=== PATIENT | female | born 1945 | race Caucasian/White ===

== ENCOUNTER → 2019-01-20 | Outpatient (CLI) | payer MEDICARE, OTHER ==
--- NOTE | 2019-01-20 20:51 | XCELERA REPORT ---
[address] [address] Transthoracic Echocardiogram Report Name: RENEE KENNEDY Age: 73 yrs Gender: Female : 1945 Patient Status: Outpatient Patient Location: [facility] Study Date: 01/20/2019 01:51 PM Height: 65 in Weight: 189 lb BSA: 1.9 m2 Procedure: A complete two-dimensional transthoracic echocardiogram was performed (2D, M-mode, spectral and color flow Doppler). The study was technically adequate with some images being suboptimal in quality. Reason For Study: CHF Ordering Physician: MARIAH GILBERT Performed By: Jazz Avalos Interpretation Summary The left ventricular ejection fraction is normal. Doppler measurements suggest pseudonormalized left ventricular relaxation, which is associated with grade II/IV or mild to moderate diastolic dysfunction There is mild concentric left ventricular hypertrophy. The left ventricle is grossly normal size. The right ventricular systolic function is normal. The left atrium is mildly dilated. The right atrium is normal in size There is a trace to mild amount of mitral regurgitation There is no mitral valve stenosis. No aortic regurgitation is present. There is no aortic valve stenosis There is a trace to mild amount of tricuspid regurgitation Right ventricular systolic pressure is at the upper limits of normal The inferior vena cava appeared normal and decreased > 50% with respiration (RAP 5-10 mmHg) The aortic root is not well visualized but is probably normal size. There is no pericardial effusion. MMode/2D Measurements & Calculations RVDd: 2.9 cm LVIDd: 4.3 cm FS: 43.1 % Ao root diam: 2.6 cm IVSd: 1.1 cm LVIDs: 2.5 cm EDV(Teich): 83.4 ml Ao root area: 5.5 cm2 LVPWd: 1.1 cm ESV(Teich): 21.3 ml LA dimension: 3.5 cm EF(Teich): 74.5 % Doppler Measurements & Calculations MV E max ambar: MV P1/2t max ambar: Ao V2 max: LV V1 max P.0 cm/sec 80.9 cm/sec 134.5 cm/sec 3.8 mmHg MV A max ambar: MV P1/2t: 76.7 msec Ao max P.2 mmHg LV V1 max: 97.7 cm/sec MVA(P1/2t): 2.9 cm2 97.2 cm/sec MV E/A: 0.82 MV dec slope: 309.2 cm/sec2 MV dec time: 0.27 sec PA V2 max: TR max ambar: MV P1/2t-pr_phl: 89.8 cm/sec 221.1 cm/sec 76.7 msec PA max PG: TR max P.5 mmHg 3.2 mmHg Left Ventricle The left ventricle is grossly normal size. There is mild concentric left ventricular hypertrophy. The left ventricular ejection fraction is normal. Doppler measurements suggest pseudonormalized left ventricular relaxation, which is associated with grade II/IV or mild to moderate diastolic dysfunction. Wall motion cannot be accurately commented on, but no definite regional wall motion abnormalities noted. Right Ventricle The right ventricle is grossly normal size. There is normal right ventricular wall thickness. The right ventricular systolic function is normal. Atria The right atrium is normal in size. The left atrium is mildly dilated. Interarterial septum not well visualized and not well dopplered. Cannot comment on ASD/PFO presence. Mitral Valve There is mild mitral leaflet calcification. There is no mitral valve stenosis. There is a trace to mild amount of mitral regurgitation. Aortic Valve The aortic valve is grossly normal. There is no aortic valve stenosis. No aortic regurgitation is present. Tricuspid Valve The tricuspid valve is not well visualized, but is grossly normal. There is no tricuspid stenosis. There is a trace to mild amount of tricuspid regurgitation. Right ventricular systolic pressure is at the upper limits of normal. Pulmonic Valve The pulmonic valve is not well visualized. Great Vessels The aortic root is not well visualized but is probably normal size. The inferior vena cava appeared normal and decreased > 50% with respiration (RAP 5-10 mmHg). Effusions There is no pericardial effusion. : MARIAH GILBERT > Carrie Wilson
== END ==
LOC: SP 13:01
PROVIDERS: ATTEND Physician Assistant
DX: I50.30 Unspecified diastolic (congestive) heart failure (principal)
CPT/HCPCS: 93306